=== PATIENT | male | born 1985 | race Two or more races ===

== ENCOUNTER 2023-02-25 03:04 | Emergency (ER) | payer MEDICAID ==
[~2023-02-25] VITALS: Ht 180.3 cm; Wt 122.0 kg
[2023-02-25 03:41] VITALS: BP 132/84; PULSE 87; RESP 16; TEMP 98.1
[2023-02-25] MEDS ORDERED: METF-1211 PO (03:44)
[2023-02-25 04:22] LABS: BASOPHILS % (AUTO) 0.5 % (0.0-2.0); EOSINOPHILS % (AUTO) 5.1 % (1.0-6.0); HEMOGLOBIN 14.9 g/dL (13.5-17.5); LYMPHOCYTES # (AUTO) 2.7 K/uL (1.0-4.8); LYMPHOCYTES % (AUTO) 27.3 % (22.0-44.0); MEAN CORPUSCULAR HEMOGLOBIN 33.1 pg (26.0-34.0); MEAN CORPUSCULAR HGB CONC 34.8 G/dL (31.0-37.0); MEAN CORPUSCULAR VOLUME 95 fL (80-100); MONOCYTES # (AUTO) 0.5 K/uL (0.1-1.0); MONOCYTES % (AUTO) 5.2 % (2.0-9.0); NEUTROPHILS # (AUTO) 6.1 K/uL (1.8-7.7); NEUTROPHILS % (AUTO) 61.9 % (40.0-70.0); PLATELET COUNT (AUTO) 326 K/uL (150-450); RED BLOOD CELL COUNT(AUTO) 4.51 MIL/uL (4.50-5.90); WHITE BLOOD COUNT (AUTO) 9.8 K/uL (4.5-11.0)
[2023-02-25 04:27] LABS: ALCOHOL, BLOOD (SERUM) 43 mg/dL (0-10)
[2023-02-25 04:32] LABS: ANION GAP 9 mmol/L (8-16); B-TYPE NATRIURETIC PEPTIDE 5 pg/mL (0-100); CARBON DIOXIDE 26 mmol/L (22-29); CHLORIDE 101 mmol/L (98-107); CREATININE 1.13 mg/dL (0.60-1.30); GLOMERULAR FILTR. RATE CALC > 60 mL/min (>60); GLUCOSE,RANDOM 251 mg/dL (70-110); SODIUM SERUM 136 mmol/L (136-145); UREA NITROGEN, BLOOD 11 mg/dL (7-18)
[2023-02-25 04:36] LABS: ALANINE AMINOTRANSFERASE 65 U/L (12-78); ALBUMIN 3.7 g/dL (3.4-5.0); ALKALINE PHOSPHATASE 87 U/L (46-116); ASPARTATE AMINOTRANSFERASE 33 U/L (15-37); BILIRUBIN,TOTAL 0.4 mg/dL (0.1-1.0); TOTAL PROTEIN, SERUM 7.4 g/dL (6.4-8.2)
[2023-02-25 04:44] LABS: TROPONIN I-HIGH SENSITIVITY 12 ng/L (<76)
== END 2023-02-25 05:25 | disposition home or self-care (01) ==
LOC: EMS 03:04
DX: E11.9 Type 2 diabetes mellitus without complications (principal); R55 Syncope and collapse; J45.909 Unspecified asthma, uncomplicated; F17.210 Nicotine dependence, cigarettes, uncomplicated; F12.90 Cannabis use, unspecified, uncomplicated; F10.90 Alcohol use, unspecified, uncomplicated; Y90.9 Presence of alcohol in blood, level not specified
CPT/HCPCS: 99285; 71045; 80053; 83880; 84484; 85025; 93005; G0480